=== PATIENT | female | born 1995 | race Asian ===

== ENCOUNTER → 2024-12-14 | Outpatient (CLI) | payer OTHER ==
[2024-12-14 13:09] LABS: PLATELET COUNT, AUTOMATED 275 10^3/uL (150-450)
[2024-12-14 13:48] LABS: HIV 1&2 SCREEN NEGATIVE (NEGATIVE)
[2024-12-14 13:57] LABS: HEPATITIS C VIRUS ABY INDEX < 0.02 INDEX (<0.8)
[2024-12-14 14:47] LABS: Trichomonas vaginalis (AMP) NOT DETECTED (NEGATIVE)
[2024-12-14 15:11] LABS: GC DNA AMPLIFICATION NEGATIVE (NEGATIVE)
== END ==
LOC: M PLALAB 10:34
PROVIDERS: ATTEND Advanced Practice Midwife
DX: Z34.81 Encounter for supervision of other normal pregnancy, first trimester (principal)

== ENCOUNTER → 2024-12-14 | Outpatient (REF) | payer OTHER | LOC: M PLALAB 10:23 | PROVIDERS: ATTEND Advanced Practice Midwife | DX: Z34.81 Encounter for supervision of other normal pregnancy, first trimester (principal) ==

== ENCOUNTER 2025-01-23 13:52 | Outpatient (CLI) | payer OTHER ==
[~2025-01-23] VITALS: Ht 167.6 cm; Wt 62.1 kg
[2025-01-23] MEDS ORDERED: PRENTAB9 PO (14:10)
[2025-01-23 14:14] VITALS: BP 106/55
== END 2025-01-23 14:39 | disposition home or self-care (01) ==
LOC: M LDO 13:52
PROVIDERS: ATTEND Specialist
DX: O26.852 Spotting complicating pregnancy, second trimester (principal); Z3A.16 16 weeks gestation of pregnancy
CPT/HCPCS: 59025; G0463

== ENCOUNTER → 2025-02-23 | Outpatient (CLI) | payer OTHER ==
[~2025-02-23] MED LIST: PRENTAB9 PO
== END ==
LOC: M WHC 07:35
PROVIDERS: ATTEND Obstetrics & Gynecology
DX: Z34.82 Encounter for supervision of other normal pregnancy, second trimester (principal); Z3A.21 21 weeks gestation of pregnancy

== ENCOUNTER → 2025-04-17 | Outpatient (CLI) | payer OTHER ==
[2025-04-17 14:16] LABS: PLATELET COUNT, AUTOMATED 265 10^3/uL (150-450)
[2025-04-17 14:28] LABS: GLUCOSE CHALLENGE TEST 1 HOUR 112 MG/DL (LESS THAN 140)
[2025-04-17 15:04] LABS: HIV 1&2 SCREEN NEGATIVE (NEGATIVE)
[2025-04-17 15:10] LABS: Trichomonas vaginalis (AMP) NOT DETECTED (NEGATIVE)
[2025-04-17 15:11] LABS: HEPATITIS C VIRUS ABY INDEX < 0.02 INDEX (<0.8)
[2025-04-17 15:33] LABS: GC DNA AMPLIFICATION NEGATIVE (NEGATIVE)
== END ==
LOC: M PLALAB 10:18
PROVIDERS: ATTEND Obstetrics & Gynecology
DX: Z34.92 Encounter for supervision of normal pregnancy, unspecified, second trimester (principal)